=== PATIENT | female | born 1990 | race Caucasian/White ===

== ENCOUNTER 2016-07-27 17:57 | Emergency (ER) | payer BC, OTHER ==
[~2016-07-27] VITALS: Wt 50.0 kg
[2016-07-27] MEDS ORDERED: DIPHENHYDRAMINE 50 MG INJ IM ONE (20:00)
[2016-07-27] MEDS ORDERED: METHYLPREDNISOLONE 125 MG INJ IM ONE (20:00)
[2016-07-27] MEDS ORDERED: PRED20TA PO (20:01)
[2016-07-27] MEDS ORDERED: BEN50 PO (20:02)
--- NOTE | 2016-07-27 20:07 | ERD ---
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 Patient states that she did not eat anything out of the ordinary. She denies any new medications, new creams or detergents. She denies chest pain. Denies taking any medications ROS All systems reviewed and are negative except as per history of present illness. Medications Home Meds Active Scripts Diphenhydramine Hcl* (Benadryl*) 50 Mg Cap, 50 MG PO Q6 Y for ITCHING, #30 CAP Prov:HETAL COON PA-C 07/27/16 Prednisone* (Prednisone*) 20 Mg Tab, 40 MG PO DAILY for 4 Days, TAB Prov:HETAL COON PA-C 07/27/16 Allergies Allergies: Coded Allergies: No Known Allergy (Unverified , 07/27/16) PMhx/Soc History of Surgery: Yes (Breast Augmentation sx.) Anesthesia Reaction: No Hx Neurological Disorder: No Hx Respiratory Disorders: No Hx Cardiac Disorders: No Hx Psychiatric Problems: No Hx Miscellaneous Medical Probl: Yes (Hypokalemia.) Hx Alcohol Use: No Hx Substance Use: No Hx Tobacco Use: No Smoking Status: Never smoker Physical Exam Vitals Vital Signs Date Time Temp Pulse Resp B/P Pulse Ox O2 Delivery O2 Flow Rate FiO2 07/27/16 18:15 98.6 100 22 156/70 100 Physical Exam General: WD/WN, in no apparent distress, non-toxic appearing HENT: NC/AT Eyes: Conjunctiva normal, mild swelling of the right upper eyelid, extraocular muscles are intact, pupils are equal reactive to light Neck: Supple Pulm: Clear to auscultation, normal labored breathing; no wheezing/rales/ rhonchi heard, CV: Good capillary refill GI: Non-distended, no guarding Back: No masses Ext: No clubbing, cyanosis, or edema Neuro: Moves on all fours Skin: raised scattered erythematous papules throughout body Psych: Normal mood Results 24 hrs Current Medications Medications (Trade) Dose Ordered Sig/Aleyda Route PRN Reason Start Time Stop Time Status Last Admin Dose Admin Diphenhydramine HCl (Benadryl) 50 mg ONCE ONCE IM 07/27/16 20:00 07/27/16 20:01 DC Methylprednisolone Sodium Succinate (Solu-Medrol) 125 mg ONCE ONCE IM 07/27/16 20:00 07/27/16 20:01 DC Procedures/MDM This is a 26-year-old female presenting to the emergency department with scattered hives throughout her body and mild right upper eyelid swelling status post eating dinner 30 minutes prior to being seen. On examination patient was breathing well on room air, she had a pulse ox 100% there was no evidence of wheezing or labored breathing. Her lungs are clear to auscultation bilaterally. Patient likely has an allergic reaction. There was no evidence of anaphylaxis or respiratory distress. In the ED patient was given Solu- Medrol IM and Benadryl 50 mg IM. She has patient has some improvement. Patient was given a prescription for Benadryl and prednisone to take for the next 4 days. I discussed with patient to follow-up with the primary care physician for further evaluation and management. Discussed her to the ER for any worsening signs or symptoms. Patient understands and agrees with this plan Departure Diagnosis: Primary Impression: Allergic reaction Encounter type: initial encounter Qualified Code: T78.40XA - Allergic reaction, initial encounter Condition: Stable Patient Instructions: First Aid: Allergic Reactions, Dermatitis, Non-Specific, Hives Referrals: (Family) PETERSON GAY MD (PCP) Additional Instructions: FOLLOW UP WITH YOUR PRIMARY CARE PHYSICIAN TOMORROW.Return to this facility if you are not improving as expected. Take all medicines as directed. You have been given a medicine which may cause drowsiness.DO NOT DRIVE OR OPERATE DANGEROUS MACHINERY while taking this medicine! Return to this facility if you are not improving as expected. HETAL COON PA-C Jul 27, 2016 20:07
[2016-07-27 20:40] VITALS: BP 117/75; PULSE 92; RESP 18; TEMP 98.4
== END 2016-07-27 20:39 | disposition home or self-care (01) ==
LOC: FTE 17:57
DX: R21 Rash and other nonspecific skin eruption (principal)
CPT/HCPCS: J1200; J2930; 96372

== ENCOUNTER 2016-10-18 12:52 | Day surgery (SDC) | payer OTHER ==
[~2016-10-18] VITALS: Ht 147.3 cm; Wt 50.5 kg
[~2016-10-18 12:52] MED LIST: BEN50 PO; PRED20TA PO
[2016-10-18] MEDS ORDERED: KLOR-CON (15:04)
[2016-10-18] MEDS ORDERED: VITAMIN D (15:04)
[2016-10-18] MEDS ORDERED: CARAFATE (15:04)
[2016-10-18] MEDS ORDERED: PANTOPRAZOLE (15:04)
[2016-10-18 15:05] VITALS: Ht 147.3 cm; Wt 50.5 kg
[2016-10-18 15:31] VITALS: BP 110/66; PULSE 85; RESP 18
[2016-10-18] MEDS ORDERED: PROPOFOL 20 ML ONE (16:17)
[2016-10-18 17:05] VITALS: BP 101/60; PULSE 98; RESP 18
--- NOTE | 2016-10-18 17:20 | GILP ---
DATE OF PROCEDURE: 10/18/2016 NAME OF PROCEDURE: Esophagogastroduodenoscopy with biopsies. SURGEON: Vishnu Jansen MD HISTORY AND INDICATIONS: The patient being evaluated for abdominal pain and dyspepsia. PREMEDICATION: Monitored anesthesia care by anesthesiologist. INSTRUMENT USED: Olympus panendoscope. TECHNIQUE: After informed consent, with the patient/relatives understanding the procedure, its brad cations, potential risks and complications, including but not limited to allergic reaction, bleeding , perforation or infection, and after all pertinent questions were answered to the patients satisfac tion, the patient/relatives signed witnessed informed consent. Following this, premedication was administered slowly IV push under careful cardiovascular and respi ratory monitoring with pulse oximetry, automatic blood pressure and vegetable sorter. Once the sedative effect was achieved the patient was place in the left lateral decubitus, the panen doscope was introduced and advanced under visual control. Careful examination of the upper gastrointestinal tract both on insertion as well as withdrawal of t he instrument disclosed the following findings: ESOPHAGUS: There is a small hiatal hernia. No evidence of esophagitis. STOMACH: Upon entrance to the stomach, air was insufflated. The gastric white distended normally. The mucosa of the fundus, body and antrum of the stomach was carefully examined and shows erythema and edema of the mucosa of a moderate degree. Biopsies were obtained to rule out H. pylori infectio n. PYLORUS: The pylorus appears patent and within normal limits with no evidence of gastric outlet obs truction. DUODENUM: The duodenal mucosa was carefully examined in the duodenal bulb as well as the second por tion of the duodenum and appears unremarkable with no evidence of duodenitis, ulcer or neoplasm. The instrument was then withdrawn. The patient tolerated the procedure well and was transferred out of the endoscopy suite awake and in good condition to continue recovery under observation IMPRESSION: 1. Small hiatal hernia. 2. No evidence of gastroesophageal reflux disease. 3. Moderate gastritis, rule out Helicobacter pylori infection. Biopsies obtained. PLAN: The patient will be treated with PPIs. Further recommendation will depend on her clinical co urse as well as review of biopsies. Dictated By: VISHNU JANSEN MS/KOBE Conf#: [id number] DID#: [id number]
== END 2016-10-18 19:23 | disposition home or self-care (01) ==
LOC: GIL 12:52
PROVIDERS: ATTEND Internal Medicine Gastroenterology
DX: K29.50 Unspecified chronic gastritis without bleeding (principal); K44.9 Diaphragmatic hernia without obstruction or gangrene
CPT/HCPCS: 43239; 88305; 88312; Z7610

== ENCOUNTER 2019-03-06 15:57 | Emergency (ER) | payer OTHER ==
[~2019-03-06] VITALS: Ht 147.3 cm; Wt 51.6 kg
[~2019-03-06 15:57] MED LIST changes: -BEN50 PO; +CARAFATE; +KLOR-CON; +PANTOPRAZOLE; -PRED20TA PO; +VITAMIN D
[2019-03-06 16:10] VITALS: Ht 147.3 cm; Wt 51.6 kg
[2019-03-06] MEDS ORDERED: morphine 4 MG/ML VIAL IV STA (17:57)
[2019-03-06] MEDS ORDERED: SOD CHLORIDE 0.9% 1,000 ML IV STA (17:57)
[2019-03-06] MEDS ORDERED: ONDANSETRON 4 MG INJ IV STA (17:57)
[2019-03-06] MEDS ORDERED: POTASSIUM BICARBONATE 25 MEQ TAB PO ONE (19:30)
[2019-03-06] MEDS ORDERED: MAGNESIUM CHLORIDE (SR) 64 MG TAB PO ONE (19:30)
[2019-03-06] MEDS ORDERED: MAGNESIUM SULFATE 2 GM/50 ML 50 ML IVPB ONE (19:30)
[2019-03-06] MEDS ORDERED: POTASSIUM CHLORIDE (SR) 20 MEQ TAB PO ONE (20:30)
[2019-03-06] MEDS: POTASSIUM CHLORIDE 100 ML IVPB SCH ×2 (20:40→22:29)
[2019-03-07] MEDS ORDERED: POTASSIUM CHLORIDE (SR) 20 MEQ TAB PO ONE (01:02)
[2019-03-07 01:13] VITALS: BP 115/81; PULSE 90; RESP 17
== END 2019-03-07 01:17 | disposition home or self-care (01) ==
LOC: FTE 15:57 → E/R 03-07 01:17
DX: E87.6 Hypokalemia (principal)
CPT/HCPCS: 36415; 76705; 80048; 80053; 81001; 81025; 83690; 84702; 85025; 93005; 96374; 96375; 96376; J2270; J2405; J3475; J3480; J7030; Z7502; Z7610